=== PATIENT | male | born 1990 | race Caucasian/White ===

== ENCOUNTER 2018-08-10 10:59 | Emergency (ER) | payer MEDICAID ==
[~2018-08-10] VITALS: Ht 182.9 cm; Wt 112.0 kg
--- NOTE | 2018-08-10 11:20 | NUR ---
PT AMBULATORY TO ER BED 14, PRESENTS W/ BILAT LOWER EXTREMITY PAIN AND SWELLING X 5 DAYS. PT DENIES TRAUMA. RASHES AND PAIN NOTED WORST TO LLE. AWAITING MD NICOLE.
--- NOTE | 2018-08-10 11:47 | NUR ---
SOPHIA AGARWAL AT BEDSIDE FOR EVAL.
--- NOTE | 2018-08-10 12:10 | NUR ---
PEDIATRIC PHYSICAL THERAPIST AT BEDSIDE FOR BLOOD DRAW.
[2018-08-10 12:15] LABS: BASOPHILS # (AUTO) 0.1 /CMM (0.0-0.2); BASOPHILS % (AUTO) 1.5 % (0.0-2.0); EOSINOPHILS % (AUTO) 0.6 % (0.0-6.0); HEMATOCRIT 41 % (39-51); HEMOGLOBIN 13.6 g/dL (13.5-17.5); LYMPHOCYTES # (AUTO) 0.7 /CMM (0.8-4.8); LYMPHOCYTES % (AUTO) 8.1 % (20.0-44.0); MEAN CORPUSCULAR HGB CONC 34 g/dl (31.0-36.0); MEAN CORPUSCULAR VOLUME 90 fL (80-96); MONOCYTES # (AUTO) 0.3 /CMM (0.1-1.30); MONOCYTES % (AUTO) 4.2 % (2.0-12.0); NEUTROPHILS % (AUTO) 85.6 % (43.0-81.0); PLATELET COUNT (AUTO) 319 /CMM (150-450); RDW COEFFICIENT OF VARIATION 12.3 (11.5-15.0); RED BLOOD CELL COUNT(AUTO) 4.51 MIL/uL (4.5-6.0); WHITE BLOOD COUNT (AUTO) 8.1 K/uL (4.3-11.0)
[2018-08-10] MEDS ORDERED: IBUPROFEN 600 MG TABLET PO ONE (12:16)
[2018-08-10] MEDS: IBUPROFEN 600 MG TABLET PO ONE (12:19)
[2018-08-10 12:22] LABS: CALCIUM, SERUM 8.9 mg/dL (8.5-10.1); CREATININE 0.9 mg/dL (0.6-1.3); POTASSIUM 3.9 mmol/L (3.5-5.1)
[2018-08-10 12:28] LABS: ALBUMIN 3.5 g/dL (3.4-5.0); BILIRUBIN,DIRECT 0.1 mg/dL (0.0-0.2); BILIRUBIN,TOTAL 0.5 mg/dL (0.2-1.0); TOTAL PROTEIN, SERUM 8.1 g/dL (6.4-8.2)
[2018-08-10 13:12] LABS: C-REACTIVE PROTEIN 11.2 mg/dL (0.0-0.9)
[2018-08-10 13:34] LABS: MONOTEST NEGATIVE (NEGATIVE)
--- NOTE | 2018-08-10 14:30 | NUR ---
Patient discharged to home in stable condition. Written and verbal after care instructions given. Patient verbalizes understanding of instruction.
[2018-08-10 14:32] VITALS: BP 145/87
== END 2018-08-10 14:33 | disposition home or self-care (01) ==
LOC: ER 11:04
DX: R21 Rash and other nonspecific skin eruption (principal); M25.562 Pain in left knee; M25.561 Pain in right knee
CPT/HCPCS: 36415; 71045; 80048; 80076; 82550; 85025; 86140; 86308; 99285; A4606; Z7610

== ENCOUNTER 2018-08-13 13:44 | Emergency (ER) | payer MEDICAID ==
[~2018-08-13] VITALS: Ht 182.9 cm; Wt 112.0 kg
--- NOTE | 2018-08-13 14:00 | NUR ---
PATIENT BROUGHT SELF IN FOR LLE PAIN/RASH/SWELLING THAT HAS NOT IMPROVED SINCE MONDAY. PATIENT AMBULATORY. SKIN INTACT.
[2018-08-13 14:58] VITALS: BP 141/79
--- NOTE | 2018-08-13 14:59 | NUR ---
Patient discharged to home in stable condition. Written and verbal after care instructions given. Patient verbalizes understanding of instruction.
== END 2018-08-13 15:00 | disposition home or self-care (01) ==
LOC: ER 13:47
DX: L52 Erythema nodosum (principal); Z60.2 Problems related to living alone
CPT/HCPCS: 99283; A4606; Z7610